=== PATIENT | female | born 1990 | race African-American/Black ===

== ENCOUNTER 2019-07-14 22:17 | Emergency (ER) | payer MEDICAID, MEDICARE ==
[~2019-07-14] VITALS: Ht 172.7 cm; Wt 63.0 kg
[2019-07-15] MEDS ORDERED: TETANUS, DIPHTHERIA, PERTUSSIS VAC/PF 0.5ML (>7YR OLD) IM ONE (00:30)
[2019-07-15] MEDS ORDERED: BACITRACIN ZINC OINT UDPKT TOP ONE (00:30)
[2019-07-15 00:52] VITALS: BP 110/70
== END 2019-07-15 00:53 | disposition home or self-care (01) ==
LOC: ER 22:17
DX: L02.212 Cutaneous abscess of back [any part, except buttock and flank] (principal); M19.90 Unspecified osteoarthritis, unspecified site; M79.7 Fibromyalgia
CPT/HCPCS: 10060; 90471; 90715; 99283

== ENCOUNTER 2020-08-05 01:34 | Emergency (ER) | payer MEDICARE, OTHER ==
[~2020-08-05] VITALS: Ht 172.7 cm; Wt 62.0 kg
[2020-08-05] MEDS ORDERED: CYCL5TAB MT (02:24)
[2020-08-05] MEDS ORDERED: NAPR-681 MT (02:24)
[2020-08-05] MEDS ORDERED: KETOROLAC 30MG/ML VIAL IM ONE (02:30)
[2020-08-05] MEDS ORDERED: CYCLOBENZAPRINE 10MG TABLET PO ONE (02:30)
[2020-08-05 02:36] VITALS: BP 135/96
== END 2020-08-05 02:50 | disposition home or self-care (01) ==
LOC: ER 01:34
DX: M54.89 Other dorsalgia (principal); M79.7 Fibromyalgia; M19.90 Unspecified osteoarthritis, unspecified site
CPT/HCPCS: 96372; 99283; J1885

== ENCOUNTER 2021-01-13 18:16 | Emergency (ER) | payer OTHER, MEDICAID ==
[~2021-01-13] VITALS: Ht 172.7 cm; Wt 62.0 kg
[~2021-01-13 18:16] MED LIST: CYCL5TAB MT; NAPR-681 MT
[2021-01-13] MEDS ORDERED: KETOROLAC 60MG/2ML VIAL IM ONE (19:00)
[2021-01-13 19:20] VITALS: BP 121/84
[2021-01-13 20:13] LABS: BASOPHILS % 0.7 % (0.0-2.0); EOSINOPHILS % 3.3 % (0.0-5.0); HEMATOCRIT. 38.5 % (36.0-48.0); HEMOGLOBIN. 13.3 g/dL (12.0-16.0); MEAN CORPUSCULAR HEMOGLOBIN 31.5 pg (28.0-32.0); MEAN CORPUSCULAR VOLUME 90.7 fL (81.0-99.0); MEAN PLATELET VOLUME 7.5 fl (7.4-10.4); MONOCYTES % 4.6 % (2.0-8.0); NEUTROPHILS % 57.4 % (40.0-76.0); PLATELET 356 x1000/uL (130-400); RED BLOOD CELL COUNT 4.24 mill/uL (4.2-5.4); RED CELL DISTRIBUTION WIDTH 13.2 % (11.6-14.6)
[2021-01-13 20:17] LABS: CHLORIDE 106 mEq/L (98-107)
[2021-01-13 20:22] LABS: AMYLASE 49 IU/L (25-115)
[2021-01-13] MEDS ORDERED: CARI350T28 MT (20:35)
== END 2021-01-13 21:15 | disposition home or self-care (01) ==
LOC: ER 18:29
DX: M54.89 Other dorsalgia (principal); M06.9 Rheumatoid arthritis, unspecified; F41.9 Anxiety disorder, unspecified; M79.7 Fibromyalgia; F90.9 Attention-deficit hyperactivity disorder, unspecified type
CPT/HCPCS: 36415; 72070; 80053; 82150; 83690; 85025; 96372; 99284; J1885

== ENCOUNTER 2021-06-12 01:05 | Emergency (ER) | payer MEDICAID, OTHER ==
[~2021-06-12] VITALS: Ht 172.7 cm; Wt 65.0 kg
[~2021-06-12 01:05] MED LIST changes: +CARI350T28 MT
[2021-06-12 01:08] VITALS: BP 118/83
[2021-06-12] MEDS ORDERED: ACETAMINOPHEN 325MG TABLET PO ONE (01:15)
== END 2021-06-12 03:17 | disposition home or self-care (01) ==
LOC: ER 01:05
DX: R07.9 Chest pain, unspecified (principal); F41.9 Anxiety disorder, unspecified; M79.7 Fibromyalgia; F32.9 Major depressive disorder, single episode, unspecified; E78.00 Pure hypercholesterolemia, unspecified; M06.9 Rheumatoid arthritis, unspecified
CPT/HCPCS: 71045; 81025; 93005; 99283

== ENCOUNTER 2021-07-23 08:36 | Emergency (ER) | payer MEDICAID, OTHER ==
[~2021-07-23] VITALS: Ht 172.7 cm; Wt 65.0 kg
[2021-07-23] MEDS ORDERED: ACETAMINOPHEN WITH CODEINE 300/30MG TABLET PO ONE (09:00)
[2021-07-23] MEDS ORDERED: TOPUD PO (09:40)
[2021-07-23 10:01] VITALS: BP 135/65
== END 2021-07-23 10:02 | disposition home or self-care (01) ==
LOC: ER 08:36
DX: M25.512 Pain in left shoulder (principal); F32.9 Major depressive disorder, single episode, unspecified; F41.9 Anxiety disorder, unspecified; E78.00 Pure hypercholesterolemia, unspecified; M79.7 Fibromyalgia; M06.9 Rheumatoid arthritis, unspecified
CPT/HCPCS: 73030; 99283; A4565

== ENCOUNTER 2022-04-10 19:48 | Emergency (ER) | payer MEDICAID, OTHER ==
[~2022-04-10] VITALS: Ht 172.7 cm; Wt 65.0 kg
[~2022-04-10 19:48] MED LIST changes: +TOPUD PO
[2022-04-10 20:00] VITALS: BP 110/77
== END 2022-04-10 21:38 | disposition left against medical advice (07) ==
LOC: ER 19:48
DX: Z53.21 Procedure and treatment not carried out due to patient leaving prior to being seen by health care provider (principal)

== ENCOUNTER 2022-05-11 09:58 | Emergency (ER) | payer MEDICAID ==
[~2022-05-11] VITALS: Ht 172.7 cm; Wt 65.0 kg
[2022-05-11 10:13] VITALS: BP 121/80
== END 2022-05-11 15:32 | disposition home or self-care (01) ==
LOC: ER 09:58
DX: R05.9 Cough, unspecified (principal); R50.9 Fever, unspecified; F41.9 Anxiety disorder, unspecified; M19.90 Unspecified osteoarthritis, unspecified site; F32.A Depression, unspecified; E78.00 Pure hypercholesterolemia, unspecified; M79.7 Fibromyalgia
CPT/HCPCS: 71046; 81025; 99283

== ENCOUNTER 2023-02-24 08:02 | Emergency (ER) | payer MEDICAID, OTHER ==
[~2023-02-24] VITALS: Ht 177.8 cm; Wt 63.0 kg
[2023-02-24 08:07] VITALS: O2SAT 97
[2023-02-24 08:47] LABS: BASOPHILS % 0.4 % (0.0-2.0); EOSINOPHILS % 1.1 % (0.0-5.0); HEMATOCRIT. 38.1 % (36.0-48.0); MEAN CORPUSCULAR HEMOGLOBIN 31.2 pg (28.0-32.0); MEAN CORPUSCULAR HGB CONC 34.1 g/dL (31.0-37.0); MEAN CORPUSCULAR VOLUME 91.5 fL (81.0-99.0); MEAN PLATELET VOLUME 7.5 fl (7.4-10.4); MONOCYTES % 4.2 % (2.0-8.0); NEUTROPHILS % 56.3 % (40.0-76.0); PLATELET 408 x1000/uL (130-400); RED BLOOD CELL COUNT 4.16 mill/uL (4.2-5.4); RED CELL DISTRIBUTION WIDTH 13.1 % (11.6-14.6); WHITE BLOOD COUNT 6.9 x1000/uL (4.5-11.0)
[2023-02-24 08:59] LABS: CHLORIDE 106 mEq/L (98-107); INDEX HEMOLYSI 1 (1-3); INDEX ICTERIC 1 (1-4); INDEX LIPEMIC 1 (1-3); POTASSIUM 3.6 mEq/L (3.5-5.1); SODIUM 136 mEq/L (136-145)
[2023-02-24 09:07] LABS: ALANINE AMINOTRANSFERASE 16 IU/L (13-61); ALBUMIN 3.5 g/dL (3.4-5.0); ASPARTATE AMINOTRANSFERASE 10 IU/L (15-37); BILIRUBIN TOTAL 0.3 mg/dL (0.1-1.0); CALCIUM 8.1 mg/dL (8.5-10.1); CARBON DIOXIDE 29 mEq/L (21-32); CREATININE 0.6 mg/dL (0.6-1.3); GLUCOSE 102 mg/dL (70-105); NT PRO B-TYPE NATRIURETIC PEP 81 pg/mL (5-125); PROTEIN TOTAL 8.2 g/dL (6.0-8.3); UREA NITROGEN BLOOD 7 mg/dL (7-21)
[2023-02-24 09:08] LABS: TROPONIN I HIGH SENSITIVITY < 4 ng/L (<54)
[2023-02-24 09:14] LABS: HCG SCREEN NEGATIVE
[2023-02-24] MEDS ORDERED: KETOROLAC 60MG/2ML VIAL IM NR (09:30)
[2023-02-24 10:42] VITALS: BP 121/85; PULSE 77; RESP 18; TEMP 98.3
== END 2023-02-24 10:44 | disposition home or self-care (01) ==
LOC: ER 08:37
DX: R07.89 Other chest pain (principal); E78.00 Pure hypercholesterolemia, unspecified; Z91.013 Allergy to seafood
CPT/HCPCS: 99285; 71045; 80053; 81025; 84703; 83880; 85025; 84484; 36415; 93005; 96372; J1885

== ENCOUNTER 2024-07-30 15:45 | Emergency (ER) | payer OTHER ==
[~2024-07-30] VITALS: Ht 172.7 cm; Wt 60.0 kg
[~2024-07-30 15:45] MED LIST changes: -CYCL5TAB MT; +CYCL5TAB3 MT
[2024-07-30 15:48] VITALS: O2SAT 100
[2024-07-30 16:03] VITALS: TEMP 36.7; O2SAT 99
[2024-07-30 17:24] VITALS: BP 120/80; PULSE 84; RESP 18; TEMP 98.1
[2024-07-30] MEDS: KETOROLAC 15MG/ML VIAL IM ONE (17:24)
[2024-07-30] MEDS: METOCLOPRAMIDE HCL 10MG TABLET PO ONE (17:24)
[2024-07-30] MEDS: ACETAMINOPHEN 325MG TABLET PO ONE (17:24)
== END 2024-07-30 19:22 | disposition home or self-care (01) ==
LOC: ER 15:45
DX: R51.9 Headache, unspecified (principal); F41.9 Anxiety disorder, unspecified; E78.00 Pure hypercholesterolemia, unspecified; Z79.1 Long term (current) use of non-steroidal anti-inflammatories (NSAID); Z79.899 Other long term (current) drug therapy; M19.90 Unspecified osteoarthritis, unspecified site; M79.7 Fibromyalgia
CPT/HCPCS: 99285; 70450; 81025; 96372; J1885; J8597; 99284

== ENCOUNTER 2025-01-03 21:40 | Emergency (ER) | payer MEDICARE, MEDICAID ==
[~2025-01-03] VITALS: Ht 174 cm; Wt 66.5 kg
[~2025-01-03 21:40] MED LIST changes: +CARI-518 MT; -CARI350T28 MT
[2025-01-03 21:47] VITALS: BP 117/81; TEMP 37.1; O2SAT 97
[2025-01-03 21:54] VITALS: PULSE 90; RESP 18; O2SAT 98
[2025-01-03] MEDS ORDERED: CAPS42.514 TP (23:04)
[2025-01-03] MEDS ORDERED: GABA-1180 MT (23:04)
[2025-01-03] MEDS ORDERED: LIDO-53 TP (23:04)
== END 2025-01-03 23:50 | disposition home or self-care (01) ==
LOC: ER 21:40
DX: M25.561 Pain in right knee (principal); E78.00 Pure hypercholesterolemia, unspecified; Z79.1 Long term (current) use of non-steroidal anti-inflammatories (NSAID)
CPT/HCPCS: 99282; 99283; A4606

== ENCOUNTER 2025-02-20 20:55 | Emergency (ER) | payer MEDICARE, MEDICAID ==
[~2025-02-20] VITALS: Ht 172.7 cm; Wt 66.6 kg
[~2025-02-20 20:55] MED LIST changes: +CAPS42.514 TP; +GABA-1180 MT; +LIDO-53 TP
[2025-02-20 21:25] VITALS: O2SAT 99
[2025-02-21] MEDS ORDERED: FLUC150T46 MT (01:25)
[2025-02-21 01:45] VITALS: BP 131/76; PULSE 74; RESP 18; TEMP 36.9; O2SAT 100
== END 2025-02-21 01:40 | disposition home or self-care (01) ==
LOC: ER 20:55
DX: B37.9 Candidiasis, unspecified (principal); E78.00 Pure hypercholesterolemia, unspecified; M06.9 Rheumatoid arthritis, unspecified; M79.7 Fibromyalgia; Z79.1 Long term (current) use of non-steroidal anti-inflammatories (NSAID); Z88.1 Allergy status to other antibiotic agents; Z91.013 Allergy to seafood
CPT/HCPCS: 87210; 99284